=== PATIENT | female | born 1970 | race Native Hawaiian/Other Pacific Islander ===

== ENCOUNTER 2016-08-24 08:04 | Outpatient (CLI) | payer OTHER | END 2016-08-24 19:55 | disposition home or self-care (01) | LOC: MAMMO 08:04 | DX: Z12.31 Encounter for screening mammogram for malignant neoplasm of breast (principal) | CPT/HCPCS: G0202-TC ==

== ENCOUNTER 2016-08-29 14:03 | Outpatient (CLI) | payer OTHER | END 2016-08-29 19:34 | disposition home or self-care (01) | LOC: MAMMO 14:03 | DX: R92.8 Other abnormal and inconclusive findings on diagnostic imaging of breast (principal) | CPT/HCPCS: 77056; G0206 ==

== ENCOUNTER 2017-02-07 10:02 | Outpatient (CLI) | payer OTHER | END 2017-02-07 11:15 | disposition home or self-care (01) | LOC: RAD 10:02 | DX: M75.01 Adhesive capsulitis of right shoulder (principal) ==

== ENCOUNTER 2020-06-23 16:42 | Outpatient (CLI) | payer OTHER | END 2020-06-23 21:06 | disposition home or self-care (01) | LOC: RAD 16:42 | PROVIDERS: ATTEND Nurse Practitioner Family | DX: J20.9 Acute bronchitis, unspecified (principal) ==

== ENCOUNTER 2020-12-02 12:21 | Outpatient (CLI) | payer OTHER | END 2020-12-02 20:55 | disposition home or self-care (01) | LOC: RAD 12:21 | PROVIDERS: ATTEND Nurse Practitioner Family | DX: M79.644 Pain in right finger(s) (principal) ==